=== PATIENT | female | born 1995 | race American Indian/Alaskan Native ===

== ENCOUNTER 2017-11-20 00:33 | Emergency (ER) | payer MEDICAID ==
[~2017-11-20] VITALS: Ht 162.6 cm; Wt 64.4 kg
[2017-11-20 00:44] VITALS: BP 118/81
[2017-11-20 00:58] LABS: CLARITY,URINE CLEAR (Clear); COLOR,URINE YELLOW (Yellow); GLUCOSE, URINE NEGATIVE (Neg); KETONES,URINE NEGATIVE (Neg); LEUKOCYTE ESTERASE ,URINE LARGE (Neg); NITRITES, URINE NEGATIVE (Neg); OCCULT BLOOD,URINE NEGATIVE (Neg); PROTEIN,URINE NEGATIVE (Neg); UROBILINOGEN,URINE 0.2 E.U/dL (0.2-1.0)
[2017-11-20 00:59] LABS: URINE HCG POSITIVE (NEG)
[2017-11-20 01:03] LABS: UA COLLECTION TYPE CLN CATCH MIDSTREAM
[2017-11-20 01:05] LABS: BACTERIA,URINE FEW /HPF (Neg); MUCUS STRANDS NONE SEEN /LPF (Neg); RBC,URINE NONE SEEN /HPF (0-2); SQUAMOUS EPITHELIAL CELL,UR MODERATE /LPF (FEW); WBC,URINE 0-4 /HPF (0-4)
== END 2017-11-20 01:57 | disposition home or self-care (01) ==
LOC: ER 00:34
DX: O26.891 Other specified pregnancy related conditions, first trimester (principal); N89.8 Other specified noninflammatory disorders of vagina; Z3A.12 12 weeks gestation of pregnancy
CPT/HCPCS: 36415; 81001; 81025; 87088; 87210; 87491; 99284

== ENCOUNTER 2019-12-28 22:04 | Emergency (ER) | payer MEDICAID ==
[~2019-12-28] VITALS: Ht 162.6 cm; Wt 54.5 kg
--- NOTE | 2019-12-28 23:32 | NUR ---
Patient is resting quietly. [employer] is present outside door, patient in custody awaiting medical clearance for booking to snf. Covid 19 results pending for clearance.
--- NOTE | 2019-12-28 23:51 | NUR ---
scientist propagator called. Patient is Covid 19 negative, this break RN will report to ED/MD.
[2019-12-28 23:55] VITALS: BP 116/87
[2019-12-28] MEDS ORDERED: TETanus/Pertussis (Acell)/Diphther VAC/PF (Tdap-Adult) 0.5ml syringe IMVAC ONE (23:55)
== END 2019-12-29 00:09 ==
LOC: ER 22:04
DX: S60.222A Contusion of left hand, initial encounter (principal); R05 Cough; R50.9 Fever, unspecified; F12.10 Cannabis abuse, uncomplicated; I49.9 Cardiac arrhythmia, unspecified; D64.9 Anemia, unspecified; W22.8XXA Striking against or struck by other objects, initial encounter; Y93.89 Activity, other specified; Y92.89 Other specified places as the place of occurrence of the external cause; Y99.8 Other external cause status; Z20.828 Contact with and (suspected) exposure to other viral communicable diseases
CPT/HCPCS: 73130; 87635; 90471; 90715; 99284; C9803

== ENCOUNTER 2020-01-19 10:13 | Emergency (ER) | payer MEDICAID ==
[~2020-01-19] VITALS: Ht 162.6 cm; Wt 116.0 kg
[2020-01-19 11:25] LABS: URINE HCG NEGATIVE (NEG)
[2020-01-19 11:28] LABS: BASOPHILS % (AUTO) 0.7 % (0-1); EOSINOPHILS % (AUTO) 0.3 % (0-6); HEMATOCRIT 38.3 % (35.0-45.0); HEMOGLOBIN 13.1 g/dl (12.0-16.0); LYMPHOCYTES # (AUTO) 1.4 X10'3 (1.1-4.8); LYMPHOCYTES % (AUTO) 20.7 % (21-51); MEAN CORPUSCULAR HEMOGLOBIN 31.4 PG (27.0-31.0); MEAN CORPUSCULAR HGB CONC 34.2 g/dL (33.0-36.5); MEAN CORPUSCULAR VOLUME 91.9 FL (78-98); MONOCYTES # (AUTO) 0.5 X10'3 (0-0.9); MONOCYTES % (AUTO) 7.4 % (2-12); NEUTROPHILS # (AUTO) 4.7 X10'3 (1.8-7.7); NEUTROPHILS % (AUTO) 70.9 % (42-75); PLATELET COUNT 331 X10'3 (140-440); RED BLOOD COUNT 4.17 X10'6 (4.20-5.60); RED CELL DISTRIBUTION WIDTH 13.3 % (11.5-14.5); WHITE BLOOD COUNT 6.7 X10'3 (4.5-11.0)
[2020-01-19 11:46] LABS: ALANINE AMINOTRANSFERASE 26 U/L (12-78); ALBUMIN 4.9 G/DL (3.4-5.0); ALBUMIN/GLOBULIN RATIO 1.4 (1.1-1.5); ALKALINE PHOSPHATASE 119 IU/L (46-116); ANION GAP 11 (8-16); ASPARTATE AMINO TRANSFERASE 29 U/L (10-37); BILIRUBIN,TOTAL 0.6 MG/DL (0.1-1.0); BLOOD UREA NITROGEN 14 MG/DL (7-18); BUN/CREATININE RATIO 19.4 (6.6-38.0); CALCIUM 9.2 MG/DL (8.5-10.1); CHLORIDE 105 MMOL/L (99-107); CREATININE 0.72 MG/DL (0.40-0.90); ETHANOL < 0.010 GM/DL (0.0-0.010); GLUCOSE 107 MG/DL (70-104); POTASSIUM 3.3 MMOL/L (3.5-5.1); SODIUM 142 MMOL/L (135-145); TOTAL CARBON DIOXIDE 26.1 MMOL/L (24-32); TOTAL PROTEIN 8.4 G/DL (6.4-8.2); eGFR > 90 ML/MIN
[2020-01-19 12:00] LABS: URINE AMPHETAMINE SCREEN POSITIVE (Neg); URINE BARBITUATE SCREEN NEGATIVE (Neg); URINE BENZODIAZEPINES SCREEN NEGATIVE (Neg); URINE CANNABINOID SCREEN POSITIVE (Neg); URINE COCAINE SCREEN NEGATIVE (Neg); URINE METHADONE SCREEN NEGATIVE (Neg); URINE OPIATE SCREEN NEGATIVE (Neg); URINE PHENCYCLIDINE SCREEN NEGATIVE (Neg)
[2020-01-19] MEDS ORDERED: LORazepam 1 MG tablet PO ONE (12:35)
[2020-01-19] MEDS ORDERED: diphenhydrAMINE 25mg capsule PO ONE (12:35)
--- NOTE | 2020-01-19 13:02 | NUR ---
rosmery roa and rosmery mckeon on martha daja ws calld for med rec. pt has had nothing filled since 2018 which was colace, motrin and a antibotic. pt states i was dx with claude in 2019 at [facility]
--- NOTE | 2020-01-19 13:05 | NUR ---
Ford lopez in [facility] - 01/19/20 at 1305 by SRINIVAS laurel venegas
--- NOTE | 2020-01-19 13:05 | NUR ---
pt was given yougart and sandy crackers to eat. when observing eating noted she had her finger s down her mouth vomitting. informed ekvin thomas
--- NOTE | 2020-01-19 14:45 | NUR ---
[facility]
[2020-01-19 15:04] LABS: CLARITY,URINE CLOUDY (Clear); COLOR,URINE YELLOW (Yellow); GLUCOSE, URINE NEGATIVE (Neg); KETONES,URINE >=80 mg/dl (Neg); LEUKOCYTE ESTERASE ,URINE NEGATIVE (Neg); NITRITES, URINE NEGATIVE (Neg); OCCULT BLOOD,URINE TRACE-LYSED (Neg); PROTEIN,URINE 30 mg/dl (Neg)
[2020-01-19 15:05] LABS: UA COLLECTION TYPE CLN CATCH MIDSTREAM
[2020-01-19 15:10] LABS: AMORPHOUS PHOSPHATES 3+; BACTERIA,URINE FEW /HPF (Neg); CAL OXALATE CRYSTALS 2+ /HPF (NEGATIVE); MUCUS STRANDS MODERATE /LPF (Neg); RBC,URINE 0-2 /HPF (0-2); SQUAMOUS EPITHELIAL CELL,UR FEW /LPF (FEW); WBC,URINE 0-4 /HPF (0-4)
--- NOTE | 2020-01-19 15:36 | NUR ---
Patient sleeping. No distress observed. Patient is medicated. Continue to monitor.
--- NOTE | 2020-01-19 15:58 | NUR ---
Dad [phone]. Manuel Harding
--- NOTE | 2020-01-19 17:03 | NUR ---
Patient continues to sleep. No distress observed. Continue to monitor.
[2020-01-19] MEDS ORDERED: NO HOME MEDS (17:04)
--- NOTE | 2020-01-19 19:52 | NUR ---
The patient is awake, and wondering how long she will be here. [facility] aware that she is awke.
--- NOTE | 2020-01-19 20:57 | NUR ---
The patient has just seen RADHA Kline from [facility]. She will remain here at least until tomorrow.
--- NOTE | 2020-01-19 22:45 | NUR ---
[facility] They will present to MD, and call back if accepted.
--- NOTE | 2020-01-19 23:00 | NUR ---
received call from Radha at [facility]. The patient needs rapid Covid test and TSH to be accepted at [facility].
--- NOTE | 2020-01-19 23:15 | NUR ---
Rapid PCR Covid test sent to pharmacy.
--- NOTE | 2020-01-20 01:39 | NUR ---
The patient is sleeping in supine position. No s/s of distress.
--- NOTE | 2020-01-20 03:18 | NUR ---
Patient sleeping in supine position. No s/s of distress.
--- NOTE | 2020-01-20 05:03 | NUR ---
The patient is sleeping on her right side. No s/s of distress.
[2020-01-20 05:41] VITALS: BP 95/52
--- NOTE | 2020-01-20 06:48 | NUR ---
Note jessica in ED - 01/20/20 at 0650 by ALONSO Patient is awake, sitting up and talking to tech. No distress observed at this time. Continue to monitor.
--- NOTE | 2020-01-20 06:51 | NUR ---
Patient sleeping supine and reclining in bed. No distress observed. Continue to monitor.
--- NOTE | 2020-01-20 08:53 | NUR ---
[facility] upset [facility] today." RN explained that Eliud upheld the 5150 hold and she is not going home but is still on a 5150 hold and will be transferred to a F. Patient is aruging. [facility], Lee, attempted to explain the same thing to patient and show patient the 5150, but she kept on arguing. Lee had to walk away. RN gave patient a copy of her 5150. Security standing by. Continue to monitor.
[2020-01-20] MEDS ORDERED: LORazepam 2 mg/ml vial IM ONE (09:05)
--- NOTE | 2020-01-20 09:20 | NUR ---
Patient took IM Ativan willingly. Patient going to [facility] in 15 minutes. Patient cried but then was more cooperative. Continue to monitor.
== END 2020-01-20 09:55 ==
LOC: ER 10:14
DX: F15.90 Other stimulant use, unspecified, uncomplicated (principal); Z20.828 Contact with and (suspected) exposure to other viral communicable diseases; F29 Unspecified psychosis not due to a substance or known physiological condition; F20.9 Schizophrenia, unspecified; F17.200 Nicotine dependence, unspecified, uncomplicated; Z86.2 Personal history of diseases of the blood and blood-forming organs and certain disorders involving the immune mechanism; Z88.0 Allergy status to penicillin; Z88.8 Allergy status to other drugs, medicaments and biological substances; Z72.820 Sleep deprivation
CPT/HCPCS: 36415; 80053; 80305; 80320; 81001; 81025; 84443; 85025; 87635; 96372; 99285; C9803; J2060; Q0163

== ENCOUNTER 2020-03-12 20:00 | Emergency (ER) | payer MEDICAID ==
[~2020-03-12] VITALS: Ht 160 cm; Wt 54.5 kg
[~2020-03-12 20:00] MED LIST: NO HOME MEDS
[2020-03-12 20:26] LABS: BASOPHILS # (AUTO) 0.1 X10'3 (0-0.2); BASOPHILS % (AUTO) 0.7 % (0-1); EOSINOPHILS % (AUTO) 0.4 % (0-6); HEMATOCRIT 36.4 % (35.0-45.0); HEMOGLOBIN 12.4 g/dl (12.0-16.0); LYMPHOCYTES # (AUTO) 1.2 X10'3 (1.1-4.8); LYMPHOCYTES % (AUTO) 13.2 % (21-51); MEAN CORPUSCULAR HEMOGLOBIN 31.3 PG (27.0-31.0); MEAN CORPUSCULAR VOLUME 92.1 FL (78-98); MEAN PLATELET VOLUME 7.9 FL (7.4-10.4); MONOCYTES # (AUTO) 0.6 X10'3 (0-0.9); MONOCYTES % (AUTO) 6.3 % (2-12); NEUTROPHILS # (AUTO) 6.9 X10'3 (1.8-7.7); NEUTROPHILS % (AUTO) 79.4 % (42-75); PLATELET COUNT 452 X10'3 (140-440); RED BLOOD COUNT 3.95 X10'6 (4.20-5.60); RED CELL DISTRIBUTION WIDTH 13.1 % (11.5-14.5); WHITE BLOOD COUNT 8.7 X10'3 (4.5-11.0)
--- NOTE | 2020-03-12 20:26 | NUR ---
[facility] CLOSED. INNA GARCIA ORDERED RAPID COVID SWAB TO CONFIRM
--- NOTE | 2020-03-12 20:28 | NUR ---
FATHER CALLED AND STATES PT TAKES ATIVAN. ALLERGIC TO LITHIUM, TRAZADONE, AND SERAQUIL.
[2020-03-12] MEDS ORDERED: LORazepam 2 mg/ml vial ONE (20:33)
[2020-03-12] MEDS ORDERED: diphenhydrAMINE 50 mg/ml inj ONE (20:34)
[2020-03-12] MEDS ORDERED: haloperidol lactate 5mg/ml inj ONE ×2 (20:34→20:35)
[2020-03-12] MEDS ORDERED: LORazepam 2 mg/ml vial IM ONE (20:35)
[2020-03-12] MEDS ORDERED: haloperidol lactate 5mg/ml inj IM ONE (20:35)
[2020-03-12] MEDS ORDERED: diphenhydrAMINE 50 mg/ml inj IM ONE (20:35)
[2020-03-12 20:38] LABS: ALANINE AMINOTRANSFERASE 25 U/L (12-78); ALBUMIN 4.5 G/DL (3.4-5.0); ALBUMIN/GLOBULIN RATIO 1.3 (1.1-1.5); ALKALINE PHOSPHATASE 102 IU/L (46-116); ANION GAP 10 (8-16); ASPARTATE AMINO TRANSFERASE 23 U/L (10-37); BILIRUBIN,TOTAL 0.4 MG/DL (0.1-1.0); BLOOD UREA NITROGEN 17 MG/DL (7-18); BUN/CREATININE RATIO 22.1 (6.6-38.0); CALCIUM 8.9 MG/DL (8.5-10.1); CHLORIDE 106 MMOL/L (99-107); CREATININE 0.77 MG/DL (0.40-0.90); ETHANOL < 0.010 GM/DL (0.0-0.010); GLUCOSE 105 MG/DL (70-104); SODIUM 141 MMOL/L (135-145); TOTAL PROTEIN 7.9 G/DL (6.4-8.2); eGFR > 90 ML/MIN
--- NOTE | 2020-03-12 21:00 | NUR ---
PATIENT MEDICATED, OFFERED COMMODE, PUT A GLOVE IN HER UNDERWEAR, REMOVED IT AND PATIENT GOT IN BED.
--- NOTE | 2020-03-12 21:30 | NUR ---
PATIENT RESTING COMFORTABLY ON RIGHT SIDE.
--- NOTE | 2020-03-12 22:30 | NUR ---
PATIENT SLEEPING ON RIGHT SIDE, NO SIGNS OF DISTRESS.
--- NOTE | 2020-03-12 23:30 | NUR ---
SLEEPING ON RIGHT SIDE NO SIGNS OF DISTRESS.
--- NOTE | 2020-03-13 00:09 | NUR ---
PATIENT'S PACKET WAS SENT TO [facility].
--- NOTE | 2020-03-13 00:13 | NUR ---
PTS VS TAKEN AND WNL. PT DID NOT AWAKEN DURING THIS. DID STRETCH OUT HER ARM WHEN ASKED. SLEEPING. LYING ON HER RIGHT SIDE WITH BLANKET COVERING TO HER CHEST. RR 14 AND UNLABORED.
--- NOTE | 2020-03-13 00:23 | NUR ---
NO URINE COLLECTED. PT MEDICATED EARLIER AND REMAINS ASLEEP. BSC WITH HAT IN ROOM FOR WHEN PT AWAKENS. ORAL HYGIENIST, RIVERA, MANDY AND I AGREEABLE TO WAITING UNTIL PT AWAKENS TO COLLECT URINE.
--- NOTE | 2020-03-13 02:59 | NUR ---
Father, Manuel, calling for update [phone]. He will call again in the [facility]. He request call from [facility] for update. 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 She has a 2 and 3 yr old who are taken care of by her parents in [place]. He reports she lives in a "house where all they do is meth". States the Pt told him she thought she "was drugged" and that she was "out of it and didn't even recognize her family". He was polite and appropirate and concerned. States he and Pts mother are trying to help the Pt.
--- NOTE | 2020-03-13 06:48 | NUR ---
pt sleeping in bed quietly no distress noted ,sitter keeping close eye on pt .will cont to monitor.
--- NOTE | 2020-03-13 08:07 | NUR ---
SPOKE TO TAD OFFICE AND INFORMED THAT URINE SPECIMEN IS STILL PENDING PT IS SLEEPING ,WILL WAKE UP PT TO GET URINE SPECIMEN.
--- NOTE | 2020-03-13 09:10 | NUR ---
tried to wake up pt but didn;t wake up,node in between and then went back to sleep .will recheck on her.
--- NOTE | 2020-03-13 10:29 | NUR ---
WOKE UP PT OFFERED WATER ,PT TAKEN FEW SIPS AND WENT BCK TO SLEEP .
--- NOTE | 2020-03-13 11:05 | NUR ---
MELLISA FROM [facility] NEED URINE TOX SCREEN.
[2020-03-13 11:38] LABS: URINE HCG NEGATIVE (NEG)
[2020-03-13 12:01] LABS: URINE AMPHETAMINE SCREEN POSITIVE (Neg); URINE BARBITUATE SCREEN NEGATIVE (Neg); URINE BENZODIAZEPINES SCREEN NEGATIVE (Neg); URINE CANNABINOID SCREEN POSITIVE (Neg); URINE COCAINE SCREEN NEGATIVE (Neg); URINE METHADONE SCREEN NEGATIVE (Neg); URINE OPIATE SCREEN NEGATIVE (Neg); URINE PHENCYCLIDINE SCREEN NEGATIVE (Neg)
--- NOTE | 2020-03-13 14:10 | NUR ---
Patient not answering questions for at this time. Jimmy from states he will come back after speaking with patients father via phone. Request we leave lights on to try and start waking patient up.
[2020-03-13 14:35] LABS: CLARITY,URINE CLOUDY (Clear); COLOR,URINE YELLOW (Yellow); GLUCOSE, URINE NEGATIVE (Neg); KETONES,URINE 15 mg/dl (Neg); LEUKOCYTE ESTERASE ,URINE NEGATIVE (Neg); NITRITES, URINE NEGATIVE (Neg); OCCULT BLOOD,URINE NEGATIVE (Neg); PROTEIN,URINE TRACE mg/dl (Neg)
[2020-03-13 14:41] LABS: UA COLLECTION TYPE CLN CATCH MIDSTREAM
[2020-03-13 14:43] LABS: MUCUS STRANDS MODERATE /LPF (Neg)
[2020-03-13 14:44] LABS: SQUAMOUS EPITHELIAL CELL,UR MODERATE /LPF (FEW)
[2020-03-13 14:51] LABS: RBC,URINE 0-2 /HPF (0-2); WBC,URINE 0-4 /HPF (0-4)
[2020-03-13 14:52] LABS: CAL OXALATE CRYSTALS FEW /HPF (NEGATIVE)
[2020-03-13 14:53] LABS: AMORPHOUS PHOSPHATES 3+
[2020-03-13 14:54] LABS: BACTERIA,URINE FEW /HPF (Neg)
--- NOTE | 2020-03-13 15:05 | NUR ---
patient arrived from main ER by ambulation and in stable condition, respirations appear normal. Got [facility] at bedside and security the patient keeps trying to refuse to answer questions but when the covers are removed she quickly wakes up.
--- NOTE | 2020-03-13 16:23 | NUR ---
the patient is sleeping on the right side, her respirations appear normal and she isnt in any distress at this time.
--- NOTE | 2020-03-13 17:24 | NUR ---
the patient was laying on her right side but was woke up by the tech to do a set of vitals. The patient's respirations appeared normal and there were no signs of distress. After the vitals were completed the patient remained laying supine and went right back to sleep.
--- NOTE | 2020-03-13 19:12 | NUR ---
Patient has been sleeping quietly since shift change. She is in no distress, laying on her right side. Good color. In direct view from the nursing stationl.
--- NOTE | 2020-03-13 23:02 | NUR ---
Pt sleeping, lying on her left side with blankets covering to her shoulders. RR 14 and unlabored. Sitter and RN within view of Pt AAT.
--- NOTE | 2020-03-13 23:47 | NUR ---
Patient remains sleeping. She has self repositioned. Bed is in mid fowlers position. Patients bed is in view from the nurses station.
--- NOTE | 2020-03-14 00:35 | NUR ---
Patiazaelt sleeps, mid fowlers position. Her head is turned to the right. W/D, color is good. Quiet respirations.
--- NOTE | 2020-03-14 04:00 | NUR ---
Patient sleeping quietly on her right side. In view from nursing station.
--- NOTE | 2020-03-14 06:42 | NUR ---
Patient sleeping supine No distress observed. Continue to monitor.
--- NOTE | 2020-03-14 08:25 | NUR ---
Patient eating breakfast. No distress observed. Continue to monitor.
--- NOTE | 2020-03-14 09:07 | NUR ---
pt resting on back rr equal and unlabored
--- NOTE | 2020-03-14 11:05 | NUR ---
Patient sleeping supine. No distress observed. Continue to monitor.
--- NOTE | 2020-03-14 13:10 | NUR ---
Patient eating lunch. No distress observed. continue to monitor.
--- NOTE | 2020-03-14 15:01 | NUR ---
PT RESTING ON BACK WITH EYES CLOSED RR EQUAL AND UNLABORED
--- NOTE | 2020-03-14 17:55 | NUR ---
Patient sitting up and speaking to her dad. No distress observed. Continue to monitor.
--- NOTE | 2020-03-14 18:50 | NUR ---
RECEIVED REPORT FROM DAPHNE GARCIA. PT CURRENTLY CALM AND COOPERATIVE WITH NO SIGNS OF DISTRESS OR DISCOMFORT. WILL CONT TO MONITOR.
--- NOTE | 2020-03-14 21:04 | NUR ---
PT SLEEPING ON RIGHT SIDE WITH NORMAL BREATHING. NO SIGNS OF DISTRESS OR DISCOMFORT NOTED. PT'S FIANCE CALLED, RN INFORMED HIM PT WAS SLEEPING. WILL CONT TO MONITOR.
--- NOTE | 2020-03-14 23:01 | NUR ---
PT SLEEPING. SHE GOT UP 30 MIN AGO TO BRUSH HER TEETH AND USE RESTROOM. PT IS CALM AND COOPERATIVE AND DOES NOT SEEM TO BE IN ANY DISTRESS OR DISCOMFORT. WILL CONT TO MONITOR.
--- NOTE | 2020-03-15 01:22 | NUR ---
PT CONTINUES TO SLEEP WITH NO SIGNS OF DISTRESS OR DISCOMFORT. WILL CONT TO MONITOR.
--- NOTE | 2020-03-15 03:14 | NUR ---
PT CONT TO SLEEP WITH REGULAR RATE OF BREATHING. NO SIGNS OF DISTRESS OR DISCOMFORT NOTED. WILL CONT TO MONITOR.
--- NOTE | 2020-03-15 05:24 | NUR ---
PT SLEEPING WITH REGULAR BREATHING RATE. NO SIGNS OF DISTRESS OR PAIN NOTED. WILL CONT TO MONITOR.
--- NOTE | 2020-03-15 06:35 | NUR ---
Resting with eyes closed, respirations normal
--- NOTE | 2020-03-15 07:55 | NUR ---
Patient laying on right side with eyes closed, respirations normal
--- NOTE | 2020-03-15 08:43 | NUR ---
Resting with eyes closed on her back. Respirations normal.
--- NOTE | 2020-03-15 09:30 | NUR ---
Resting with eyes closed, ate a little breakfast
--- NOTE | 2020-03-15 11:30 | NUR ---
Note jessica in ED - 03/15/20 at 1346 by FSTURR Patient still resting quietly. Occassionally coughing, states the RT tx help.
--- NOTE | 2020-03-15 13:15 | NUR ---
Up to nurse's station, asked to use phone and whether her parents had called
--- NOTE | 2020-03-15 15:59 | NUR ---
Given bathing items to clean up
--- NOTE | 2020-03-15 16:17 | NUR ---
Pt returned to BED 21 after daily clean up, hair washed and combed, teeth brushed. Resting quietly now in bed, denies needs.
--- NOTE | 2020-03-15 16:58 | NUR ---
Resting on right side with eyes closed, respirations normal
--- NOTE | 2020-03-15 18:11 | NUR ---
Eating dinner, took a call from friend "Babak"
--- NOTE | 2020-03-15 19:58 | NUR ---
Babak Paulino Patients roommate. [phone] He drove from [place] to [place] to pick patient up. Patient was not discharged. He will call back to check on this patients status in the am.
--- NOTE | 2020-03-15 21:09 | NUR ---
Patient exhibits anxiety, she is crying. Upset about being here, wants to be home with children. PO Ativan 1 mg is ordered.
[2020-03-15] MEDS ORDERED: LORazepam 1 MG tablet PO ONE (21:10)
--- NOTE | 2020-03-15 23:57 | NUR ---
Patient sleeping low fowlers position in bed. In view from nurses station.
--- NOTE | 2020-03-16 02:54 | NUR ---
Patient sleeping on her left side in bed, no distress. In view from nursing station .
--- NOTE | 2020-03-16 04:54 | NUR ---
Patient sleeping quietly in a low fowlers position on her left side.
[2020-03-16 05:43] VITALS: BP 106/62
--- NOTE | 2020-03-16 06:29 | NUR ---
Patient sleeping supine. No distress observed. Continue to monitor.
--- NOTE | 2020-03-16 08:01 | NUR ---
Patient eating breakfast. No distress observed. Continue to monitor.
--- NOTE | 2020-03-16 08:15 | NUR ---
Patient on the phone with a roommate. Patient got upset and brought the phone. Patient appears a little confused. Continue to monitor.
--- NOTE | 2020-03-16 09:35 | NUR ---
Patient sleeping supine. No distress observed. Continue to monitor.
--- NOTE | 2020-03-16 11:31 | NUR ---
Patient sleeping supine. No distress observed. Continue to monitor.
--- NOTE | 2020-03-16 12:29 | NUR ---
Breaking Primary RN, pt just ambulated to the bathroom, no needs at this time, will continue to monitor
--- NOTE | 2020-03-16 12:35 | NUR ---
pt requests Ativan, called over to [facility] to req
--- NOTE | 2020-03-16 13:00 | NUR ---
BRET Hansen psychiatric student and [facility] evaluating patient. No distress observed. Continue to monitor.
[2020-03-16] MEDS ORDERED: aripiprazole 5mg tablet PO SCH ×2 (13:20→21:00)
[2020-03-16] MEDS ORDERED: aripiprazole 5mg tablet PO ONE (13:20)
[2020-03-16] MEDS ORDERED: hydrOXYzine 25 MG tablet PO PRN (13:20)
--- NOTE | 2020-03-16 13:50 | NUR ---
RN gave patient her medication. 3 pills, 5 mg each. Patient just took one. THen RN asked patient to take the rest. She took another and hid the third in her hand. RN asked patient to take it and she did. Continue to monitor.
--- NOTE | 2020-03-16 14:29 | NUR ---
Patient sleeping on right side. No distress observed. Continue to monitor.
--- NOTE | 2020-03-16 15:51 | NUR ---
Patient sleeping on left side. No distress observed. Continue to monitor.
[2020-03-19] MEDS ORDERED: NICO-687 TD (13:32)
[2020-03-19] MEDS ORDERED: ARIP15TA8 PO (13:32)
== END 2020-03-16 16:08 | disposition home or self-care (01) ==
LOC: ER 20:00
DX: F99 Mental disorder, not otherwise specified (principal); Z20.822 Contact with and (suspected) exposure to COVID-19; R44.0 Auditory hallucinations; R44.1 Visual hallucinations; F15.90 Other stimulant use, unspecified, uncomplicated; Z86.2 Personal history of diseases of the blood and blood-forming organs and certain disorders involving the immune mechanism; Z88.0 Allergy status to penicillin; Z88.8 Allergy status to other drugs, medicaments and biological substances
CPT/HCPCS: 36415; 80053; 80305; 80320; 81001; 81025; 85025; 87426; 96372; 99285; J1200; J1630; J2060

== ENCOUNTER 2020-04-10 21:05 | Emergency (ER) | payer MEDICAID, OTHER ==
[~2020-04-10] VITALS: Ht 162.6 cm; Wt 54.5 kg
[~2020-04-10 21:05] MED LIST changes: +ARIP15TA8 PO; +NICO-687 TD
--- NOTE | 2020-04-10 21:56 | NUR ---
PT STATES SHE HAS NO SI OR JEY. SHE DENIES DESIRE TO . SHE CUT BILAT WRIST THREE TIMES. WITH ON SLIGHTLY DEEPER THAN SUREFICIAL
[2020-04-10 22:00] LABS: BASOPHILS # (AUTO) 0.1 X10'3 (0-0.2); EOSINOPHILS # (AUTO) 0.1 X10'3 (0-0.9); HEMATOCRIT 35.8 % (35.0-45.0); HEMOGLOBIN 12.1 g/dl (12.0-16.0); LYMPHOCYTES # (AUTO) 1.6 X10'3 (1.1-4.8); LYMPHOCYTES % (AUTO) 23.6 % (21-51); MEAN CORPUSCULAR HEMOGLOBIN 31.2 PG (27.0-31.0); MEAN CORPUSCULAR HGB CONC 33.9 g/dL (33.0-36.5); MEAN PLATELET VOLUME 8.3 FL (7.4-10.4); MONOCYTES # (AUTO) 0.5 X10'3 (0-0.9); MONOCYTES % (AUTO) 8.1 % (2-12); NEUTROPHILS # (AUTO) 4.4 X10'3 (1.8-7.7); NEUTROPHILS % (AUTO) 66.3 % (42-75); PLATELET COUNT 337 X10'3 (140-440); RED BLOOD COUNT 3.89 X10'6 (4.20-5.60); RED CELL DISTRIBUTION WIDTH 13.6 % (11.5-14.5); WHITE BLOOD COUNT 6.7 X10'3 (4.5-11.0)
--- NOTE | 2020-04-10 22:00 | NUR ---
awake asking for chart wants a copy of her chart so she can document her own updates reports we have lied in the past regarding her information
[2020-04-10 22:26] LABS: ALANINE AMINOTRANSFERASE 28 U/L (12-78); ALBUMIN 4.2 G/DL (3.4-5.0); ALBUMIN/GLOBULIN RATIO 1.2 (1.1-1.5); ALKALINE PHOSPHATASE 87 IU/L (46-116); ANION GAP 8 (8-16); ASPARTATE AMINO TRANSFERASE 17 U/L (10-37); BILIRUBIN,TOTAL 0.4 MG/DL (0.1-1.0); BLOOD UREA NITROGEN 11 MG/DL (7-18); BUN/CREATININE RATIO 17.7 (6.6-38.0); CALCIUM 8.8 MG/DL (8.5-10.1); CHLORIDE 105 MMOL/L (99-107); CREATININE 0.62 MG/DL (0.40-0.90); ETHANOL < 0.010 GM/DL (0.0-0.010); GLUCOSE 91 MG/DL (70-104); POTASSIUM 3.3 MMOL/L (3.5-5.1); SODIUM 141 MMOL/L (135-145); TOTAL CARBON DIOXIDE 27.9 MMOL/L (24-32); TOTAL PROTEIN 7.6 G/DL (6.4-8.2); eGFR > 90 ML/MIN
[2020-04-10 22:28] LABS: ACETAMINOPHEN < 2.0 UG/ML (10-30)
[2020-04-10] MEDS ORDERED: LORazepam 1 MG tablet PO ONE (22:40)
[2020-04-10] MEDS ORDERED: diphenhydrAMINE 50 mg/ml inj IM ONE (22:40)
[2020-04-10] MEDS ORDERED: potassium Cl 20 mEq SR tablet PO ONE (22:50)
--- NOTE | 2020-04-10 23:00 | NUR ---
advised to stop picking at scabs on arms patient said she can do what she wants we dont know anything. educated that she is on a hold an dcan not just leave and walk out
--- NOTE | 2020-04-11 01:35 | NUR ---
patient rubbing right areola, advised to put shirt down patient told me to go screw myslef. advised inappropriate
--- NOTE | 2020-04-11 01:48 | NUR ---
up to rest room urine specimen sent
[2020-04-11 02:01] LABS: URINE HCG NEGATIVE (NEG)
--- NOTE | 2020-04-11 02:15 | NUR ---
lying on left side no signs of distress
[2020-04-11 02:37] LABS: URINE AMPHETAMINE SCREEN POSITIVE (Neg); URINE BARBITUATE SCREEN NEGATIVE (Neg); URINE BENZODIAZEPINES SCREEN NEGATIVE (Neg); URINE CANNABINOID SCREEN POSITIVE (Neg); URINE COCAINE SCREEN NEGATIVE (Neg); URINE METHADONE SCREEN NEGATIVE (Neg); URINE OPIATE SCREEN NEGATIVE (Neg); URINE PHENCYCLIDINE SCREEN NEGATIVE (Neg)
--- NOTE | 2020-04-11 03:00 | NUR ---
sleeping no signs of distress noted
--- NOTE | 2020-04-11 04:10 | NUR ---
eupneic respirations no apparent sdistress noted
--- NOTE | 2020-04-11 05:00 | NUR ---
cooperative no complaints
[2020-04-11 06:20] VITALS: BP 116/64
--- NOTE | 2020-04-11 08:35 | NUR ---
PT RESTING WITH EYES CLOSED RR EQUAL NON LABORED. IN SITE OF NSG STATION
--- NOTE | 2020-04-11 10:45 | NUR ---
JORDYNH AT FOR EVAL. STOVALL AND LIGHTS TURNED ON.
--- NOTE | 2020-04-11 11:35 | NUR ---
[facility] AT BS SPEAKING TO PT RE POSSIBLE DC PLAN
== END 2020-04-11 15:54 | disposition home or self-care (01) ==
LOC: ER 21:06
DX: S51.812A Laceration without foreign body of left forearm, initial encounter (principal); F31.9 Bipolar disorder, unspecified; F17.200 Nicotine dependence, unspecified, uncomplicated; F15.90 Other stimulant use, unspecified, uncomplicated; Z88.0 Allergy status to penicillin; Z88.8 Allergy status to other drugs, medicaments and biological substances; Z79.899 Other long term (current) drug therapy; X83.8XXA Intentional self-harm by other specified means, initial encounter; Y93.89 Activity, other specified; Y92.89 Other specified places as the place of occurrence of the external cause; Y99.8 Other external cause status
CPT/HCPCS: 12002; 36415; 80053; 80305; 80320; 80329; 81025; 85025; 99285

== ENCOUNTER 2020-06-26 17:01 | Emergency (ER) | payer MEDICAID, OTHER ==
[~2020-06-26] VITALS: Ht 157.5 cm; Wt 56.8 kg
--- NOTE | 2020-06-26 17:36 | NUR ---
Received pt straight back with senior analyst programmer. Pt in handcuffs. Pt uncooperative, confused, disorganized. While female staff observing pt changing out of street clothes and into hospital scrubs, pt began masturbating and told female staff, "tell me to pull my pants up again, I like you" Pt then pulled off her sock and a gold colored chain fell out and she grabbed it and put it in her mouth and pretended to swallow it. After a few minutes, pt spit it out into her hand and staff was able to secure it. Pt is poor historian and answers to questions are at times incongruent to the question. Pt uncoopertive with giving urine sample and currently is in the bathroom washing up.
--- NOTE | 2020-06-26 17:48 | NUR ---
PT UNABLE TO PROVIDE URINE SAMPLE AT THIS TIME, WILL TRY AGAIN LATER.
[2020-06-26] MEDS ORDERED: OLANZapine **IM** 10 mg inj. IM ONE (18:35)
--- NOTE | 2020-06-26 18:40 | NUR ---
PT IS INTERRUPTING NURSES WITH REPORT AND IS NONCOMPLIANT WITH NURSES AT THIS TIME.
[2020-06-26 18:58] LABS: BASOPHILS % (AUTO) 0.4 % (0-1); EOSINOPHILS % (AUTO) 0.2 % (0-6); HEMATOCRIT 36.8 % (35.0-45.0); HEMOGLOBIN 12.5 g/dl (12.0-16.0); LYMPHOCYTES # (AUTO) 1.5 X10'3 (1.1-4.8); LYMPHOCYTES % (AUTO) 15.6 % (21-51); MEAN CORPUSCULAR HEMOGLOBIN 30.6 PG (27.0-31.0); MEAN CORPUSCULAR VOLUME 89.8 FL (78-98); MEAN PLATELET VOLUME 8.3 FL (7.4-10.4); MONOCYTES # (AUTO) 0.9 X10'3 (0-0.9); MONOCYTES % (AUTO) 9.4 % (2-12); NEUTROPHILS % (AUTO) 74.4 % (42-75); PLATELET COUNT 332 X10'3 (140-440); WHITE BLOOD COUNT 9.4 X10'3 (4.5-11.0)
[2020-06-26 19:01] LABS: URINE HCG NEGATIVE (NEG)
[2020-06-26 19:06] LABS: COLOR,URINE YELLOW (Yellow); GLUCOSE, URINE NEGATIVE (Neg); KETONES,URINE 40 mg/dl (Neg); LEUKOCYTE ESTERASE ,URINE NEGATIVE (Neg); NITRITES, URINE NEGATIVE (Neg); OCCULT BLOOD,URINE MODERATE (Neg); PH,URINE 5.5 (4.8-8.0); PROTEIN,URINE 100 mg/dl (Neg); UROBILINOGEN,URINE 0.2 E.U/dL (0.2-1.0)
[2020-06-26 19:11] LABS: UA COLLECTION TYPE CLN CATCH MIDSTREAM
[2020-06-26 19:12] LABS: CLARITY,URINE SLIGHTLY CLOUDY (Clear)
[2020-06-26 19:15] LABS: HYALINE CASTS 0-3 /LPF (NEGATIVE)
[2020-06-26 19:16] LABS: MUCUS STRANDS MANY /LPF (Neg); SQUAMOUS EPITHELIAL CELL,UR MODERATE /LPF (FEW)
[2020-06-26 19:16] LABS: ALBUMIN 4.9 G/DL (3.4-5.0); ANION GAP 16 (8-16); BILIRUBIN,TOTAL 1.1 MG/DL (0.1-1.0); BLOOD UREA NITROGEN 20 MG/DL (7-18); BUN/CREATININE RATIO 28.2 (6.6-38.0); CALCIUM 9.6 MG/DL (8.5-10.1); CHLORIDE 98 MMOL/L (99-107); CREATININE 0.71 MG/DL (0.40-0.90); GLUCOSE 94 MG/DL (70-104); POTASSIUM 3.7 MMOL/L (3.5-5.1); SODIUM 137 MMOL/L (135-145); TOTAL CARBON DIOXIDE 22.9 MMOL/L (24-32); TOTAL PROTEIN 8.7 G/DL (6.4-8.2); eGFR > 90 ML/MIN
[2020-06-26 19:17] LABS: ALANINE AMINOTRANSFERASE 32 U/L (12-78); ALBUMIN/GLOBULIN RATIO 1.3 (1.1-1.5); ALKALINE PHOSPHATASE 99 IU/L (46-116); ASPARTATE AMINO TRANSFERASE 56 U/L (10-37)
[2020-06-26 19:18] LABS: BACTERIA,URINE FEW /HPF (Neg); WBC,URINE 0-4 /HPF (0-4)
[2020-06-26 19:20] LABS: ACETAMINOPHEN < 2.0 UG/ML (10-30)
[2020-06-26 19:21] LABS: ETHANOL < 0.010 GM/DL (0.0-0.010)
[2020-06-26 19:25] LABS: URINE AMPHETAMINE SCREEN POSITIVE (Neg); URINE BARBITUATE SCREEN NEGATIVE (Neg); URINE BENZODIAZEPINES SCREEN NEGATIVE (Neg); URINE CANNABINOID SCREEN POSITIVE (Neg); URINE COCAINE SCREEN NEGATIVE (Neg); URINE METHADONE SCREEN NEGATIVE (Neg); URINE OPIATE SCREEN POSITIVE (Neg); URINE PHENCYCLIDINE SCREEN NEGATIVE (Neg)
--- NOTE | 2020-06-26 19:30 | NUR ---
PT REFUSED TO SPEAK ABOUT MEDICAL HX. PT NONCOMPLIANT WITH RN AND MANGA ARTIST, DOES NOT WANT TO STAY IN BED.
--- NOTE | 2020-06-26 20:33 | NUR ---
FOLLOWING MED ADMINISTRATION PT IS SLEEPING COMFORTABLY IN BED, VITAL SIGNS STABLE.
--- NOTE | 2020-06-26 21:45 | NUR ---
Pt continues to sleep comfortably this evening in no sign of distress.
--- NOTE | 2020-06-26 23:30 | NUR ---
Pt sleeping comfortably in bed at this time in no signs of distress.
--- NOTE | 2020-06-27 00:50 | NUR ---
Pt sleeping comfortably in no sign of distress at this time.
--- NOTE | 2020-06-27 01:30 | NUR ---
PT FATHER CALLED AND SPOKE WITH RN AT THIS TIME SPEAKING EXTREMELY QUICKLY AND INQUIRING ABOUT PT STATUS. NO INFORMATION DISCLOSED AT THIS TIME. PT FATHER WANTED TO ENSURE THAT CORRECT ALLERGIES WERE LISTED UNDER PT RECORD. PT SLEEPING COMFORTABLY IN BED AT THIS TIME AND UNABLE TO GIVE CONSENT TO SPEAK WITH FATHER STATED TO FATHER.
--- NOTE | 2020-06-27 02:46 | NUR ---
Pt continues to sleep comfortably in bed at this time in no sign of distress.
--- NOTE | 2020-06-27 04:20 | NUR ---
Pt sleeping comfortably in bed at this time with bed locked in lowest position. Pt in no sign of distress or pain at this time.
--- NOTE | 2020-06-27 05:20 | NUR ---
Patient resting comfortably post vital signs, continues to sleep at this time.
--- NOTE | 2020-06-27 07:00 | NUR ---
Pt lying in bed, appears to be sleeping without signs of distress.
--- NOTE | 2020-06-27 09:00 | NUR ---
Pt did awake and eat a small amount of breakfast, but refused to be bothered by [facility] shipping specialist and also did not wake for admitting.
--- NOTE | 2020-06-27 11:00 | NUR ---
[facility] both been by for the second time trying to wake the pt. No luck. Pt remains sleeping peacefully without signs of distress.
--- NOTE | 2020-06-27 12:59 | NUR ---
Pt awoke briefly to eat lunch, and fell back to sleep.
--- NOTE | 2020-06-27 15:00 | NUR ---
Pt awoke long enough to complete evaluation by [facility] and was found to not meet criteria for 5150 and pt will be discharged. Currently, pt is sleeping again.
--- NOTE | 2020-06-27 17:12 | NUR ---
relieving RN for break, pt is sleeping quietly on gurney,
[2020-06-27 18:32] VITALS: BP 95/55
== END 2020-06-27 18:36 | disposition home or self-care (01) ==
LOC: ER 17:02
DX: F23 Brief psychotic disorder (principal); F24 Shared psychotic disorder; F31.9 Bipolar disorder, unspecified; F15.90 Other stimulant use, unspecified, uncomplicated; Z86.2 Personal history of diseases of the blood and blood-forming organs and certain disorders involving the immune mechanism; Z88.0 Allergy status to penicillin; Z88.8 Allergy status to other drugs, medicaments and biological substances; Z79.899 Other long term (current) drug therapy
CPT/HCPCS: 36415; 80053; 80305; 80320; 80329; 81001; 81025; 85025; 96372; 99285; J3490

== ENCOUNTER 2020-11-10 10:08 | Emergency (ER) | payer MEDICAID, OTHER ==
[~2020-11-10] VITALS: Ht 167.6 cm; Wt 55.4 kg
[~2020-11-10 10:08] MED LIST changes: +ARIP15TA19 PO; -ARIP15TA8 PO
[2020-11-10] MEDS ORDERED: haloperidol lactate 5mg/ml inj IM ONE (10:45)
[2020-11-10] MEDS ORDERED: LORazepam 1 MG tablet PO ONE (10:45)
[2020-11-10 11:10] LABS: BASOPHILS % (AUTO) 0.5 % (0-1); EOSINOPHILS # (AUTO) 0.1 X10'3 (0-0.9); EOSINOPHILS % (AUTO) 0.8 % (0-6); HEMOGLOBIN 11.7 g/dl (12.0-16.0); LYMPHOCYTES # (AUTO) 1.7 X10'3 (1.1-4.8); LYMPHOCYTES % (AUTO) 21.7 % (21-51); MEAN CORPUSCULAR HEMOGLOBIN 31.7 PG (27.0-31.0); MEAN CORPUSCULAR HGB CONC 34.3 g/dL (33.0-36.5); MEAN CORPUSCULAR VOLUME 92.4 FL (78-98); MEAN PLATELET VOLUME 7.5 FL (7.4-10.4); MONOCYTES # (AUTO) 0.7 X10'3 (0-0.9); NEUTROPHILS # (AUTO) 5.4 X10'3 (1.8-7.7); PLATELET COUNT 410 X10'3 (140-440); RED BLOOD COUNT 3.67 X10'6 (4.20-5.60); RED CELL DISTRIBUTION WIDTH 12.7 % (11.5-14.5)
[2020-11-10 11:24] LABS: ALANINE AMINOTRANSFERASE 38 U/L (12-78); ALBUMIN 4.4 G/DL (3.4-5.0); ALBUMIN/GLOBULIN RATIO 1.3 (1.1-1.5); ALKALINE PHOSPHATASE 107 IU/L (46-116); ANION GAP 12 (8-16); ASPARTATE AMINO TRANSFERASE 32 U/L (10-37); BILIRUBIN,TOTAL 0.6 MG/DL (0.1-1.0); BLOOD UREA NITROGEN 14 MG/DL (7-18); BUN/CREATININE RATIO 21.2 (6.6-38.0); CALCIUM 8.3 MG/DL (8.5-10.1); CHLORIDE 104 MMOL/L (99-107); CREATININE 0.66 MG/DL (0.40-0.90); GLUCOSE 102 MG/DL (70-104); POTASSIUM 3.9 MMOL/L (3.5-5.1); SODIUM 142 MMOL/L (135-145); TOTAL CARBON DIOXIDE 26.1 MMOL/L (24-32); TOTAL PROTEIN 7.9 G/DL (6.4-8.2); eGFR > 90 ML/MIN
[2020-11-10 11:33] LABS: ETHANOL < 0.010 GM/DL (0.0-0.010)
[2020-11-10 11:55] LABS: URINE HCG NEGATIVE (NEG)
[2020-11-10 11:59] LABS: URINE AMPHETAMINE SCREEN POSITIVE (Neg); URINE BARBITUATE SCREEN NEGATIVE (Neg); URINE BENZODIAZEPINES SCREEN NEGATIVE (Neg); URINE CANNABINOID SCREEN POSITIVE (Neg); URINE COCAINE SCREEN NEGATIVE (Neg); URINE METHADONE SCREEN NEGATIVE (Neg); URINE OPIATE SCREEN NEGATIVE (Neg); URINE PHENCYCLIDINE SCREEN NEGATIVE (Neg)
[2020-11-10 12:00] LABS: CLARITY,URINE CLOUDY (Clear); COLOR,URINE YELLOW (Yellow); GLUCOSE, URINE NEGATIVE (Neg); PROTEIN,URINE TRACE mg/dl (Neg); UA COLLECTION TYPE CLN CATCH MIDSTREAM
[2020-11-10 12:01] LABS: KETONES,URINE TRACE mg/dl (Neg); LEUKOCYTE ESTERASE ,URINE MODERATE (Neg); NITRITES, URINE POSITIVE (Neg); OCCULT BLOOD,URINE SMALL (Neg); UROBILINOGEN,URINE 0.2 E.U/dL (0.2-1.0)
[2020-11-10 12:05] LABS: WBC,URINE TNTC /HPF (0-4)
[2020-11-10 12:06] LABS: MUCUS STRANDS FEW /LPF (Neg)
[2020-11-10 12:07] LABS: SQUAMOUS EPITHELIAL CELL,UR FEW /LPF (FEW)
[2020-11-10 12:08] LABS: BACTERIA,URINE 4+ /HPF (Neg)
[2020-11-10] MEDS: sulfamethoxazole/trimethoprim DS (800/160mg) tablet PO SCH (15:30)
--- NOTE | 2020-11-10 17:02 | NUR ---
PACKET SENT TO [facility]
--- NOTE | 2020-11-10 18:59 | NUR ---
Patient brought from main ER into bed 24. She has dinner tray, and is finishing meal.
--- NOTE | 2020-11-10 19:56 | NUR ---
Patient appears to be asleep on her right side. No s/s of distress.
--- NOTE | 2020-11-10 21:57 | NUR ---
Patient asleep on her right side. Breathing equal and not labored. There are no signs of distress.
--- NOTE | 2020-11-10 23:46 | NUR ---
Patient continues to sleep in supine position. Respirations unlabored.
[2020-11-11] MEDS: sulfamethoxazole/trimethoprim DS (800/160mg) tablet PO SCH ×3 (05:24→20:04)
--- NOTE | 2020-11-11 06:33 | NUR ---
Received patient sleeping comfortably in low fowlers position. Respirations unlabored.
[2020-11-11] MEDS: lactobacillus rhamnosus 10,000 MMU CELLS/CAPSULE PO SCH (08:41)
--- NOTE | 2020-11-11 09:01 | NUR ---
One on one with patient to assess pt psychotic symptoms. Pt reluctantly answered questions. Pt denies thoughts to harm self or others. When asked if she had a safe place pt stated "Of course!" Pt presents with an intense stare during assessment. Pt reiterated "I am not going to stay here!" Addendum: 11/11/20 at 1109 by ALBERTA Per [facility] during assessment pt stated she was going to hurt everyone "one by one" if she was placed on a hold.
[2020-11-11] MEDS ORDERED: QUEtiapine 25mg tablet PO ONE (10:45)
[2020-11-11] MEDS ORDERED: hydrOXYzine 25 MG tablet PO ONE (10:45)
[2020-11-11] MEDS ORDERED: quetiapine 100mg tablet PO ONE ×2 (10:50→14:35)
[2020-11-11] MEDS ORDERED: haloperidol lactate 5mg/ml inj IM ONE (11:00)
[2020-11-11] MEDS ORDERED: diphenhydrAMINE 50 mg/ml inj IM ONE (11:00)
--- NOTE | 2020-11-11 11:01 | NUR ---
Pt sleeping comfortably, respirations even and unlabored.
--- NOTE | 2020-11-11 11:11 | NUR ---
Pt was just told she was being placed on a hold. Pt tolerated well, no outbursts or threats. Pt stated "I can place my self." Pt rolled over and went back to sleep, will continue to monitor.
--- NOTE | 2020-11-11 11:17 | NUR ---
Pt med rec not completed as ext rec indicates pt is on Tracy and Seroquel. Pt lists these as allergies. Pt disorganized and unable to verify if allergy is legitimate.
--- NOTE | 2020-11-11 13:24 | NUR ---
Pt has remained calm. Pt had to be awoken to eat lunch and is up eating. No behaviors to report at this time.
[2020-11-11] MEDS: hydrOXYzine 25 MG tablet PO PRN ×2 (14:05→20:05)
--- NOTE | 2020-11-11 14:12 | NUR ---
Pt was standing at nurse's station and asked "Can I get some medicine?" Pt was administered PRN Atarax 50mg. Will continue to monitor. Noted pt lowering her eyes and whispering to herself. Chess Instructor asked about her allergies pt stated she is allergic to "Tylenol and Sulfa." Pt denies being allergic to quetiapine and lithium.
--- NOTE | 2020-11-11 14:29 | NUR ---
REGARDING PT's ALLERGY: Spoke with Angie at [facility], [place]. Pt was recently discharged from there facility and Dr. Benavides prescribed pt's [place] 600mg HS and Seroquel 100 mg HS. It was verified that pt IS NOT allergic to these medications. Pt also states she "is not allergic" to these medications.
--- NOTE | 2020-11-11 14:40 | NUR ---
Reported to senior grant writer while on break pt was at nurses station laughing and giggling inappropriately. Pt was twirling around. Pt was pacing from sink to nurses station.
--- NOTE | 2020-11-11 14:54 | NUR ---
Pt at nurses station requesting something to color. Pt is animated and slightly excitable. Appears to be responding to internal stimuli. Talks to self then looks to the side. Pt was administered 200mg Seroquel. Will continue to monitor.
[2020-11-11] MEDS ORDERED: QUET100T34 PO (15:47)
[2020-11-11] MEDS ORDERED: LITH300C PO (15:47)
--- NOTE | 2020-11-11 19:19 | NUR ---
One to one with the patient who gave brief replies. She did state that her mood has been up and down. She stated that she feels tired and irritable. She denies thoughts to harm herself or others. Psychotic symptoms were denied.
[2020-11-11] MEDS ORDERED: lithium carbonate 150mg capsule PO SCH (21:00)
[2020-11-11] MEDS ORDERED: quetiapine 100mg tablet PO SCH (21:00)
--- NOTE | 2020-11-11 21:30 | NUR ---
The patient appears to be sleeping
--- NOTE | 2020-11-11 23:32 | NUR ---
The patient appears to be sleeping
--- NOTE | 2020-11-12 01:04 | NUR ---
The patient appears to be sleeping
--- NOTE | 2020-11-12 02:26 | NUR ---
The patient appears to be sleeping
--- NOTE | 2020-11-12 03:25 | NUR ---
The patient appears to be sleeping
--- NOTE | 2020-11-12 05:00 | NUR ---
The patient was up briefly to use the bathroom but is now back in bed and appears to be sleeping
--- NOTE | 2020-11-12 06:55 | NUR ---
Patient sleeping on right side. No distress observed. Continue to monitor.
--- NOTE | 2020-11-12 08:17 | NUR ---
Patient c/o anxiety. RN gave Atarax with patient's regular medication. Patient eating breakfast. Continue to monitor.
[2020-11-12] MEDS: sulfamethoxazole/trimethoprim DS (800/160mg) tablet PO SCH (08:18)
[2020-11-12] MEDS: lactobacillus rhamnosus 10,000 MMU CELLS/CAPSULE PO SCH (08:19)
[2020-11-12] MEDS: hydrOXYzine 25 MG tablet PO PRN (08:19)
[2020-11-12] MEDS ORDERED: LORazepam 1 MG tablet PO ONE (11:20)
--- NOTE | 2020-11-12 13:51 | NUR ---
Pt has been accepted by [facility] at 12:30. Covid results sent to [facility].
--- NOTE | 2020-11-12 16:03 | NUR ---
Patient sleeping on right side. No distress observed. Continue to monitor.
--- NOTE | 2020-11-12 17:06 | NUR ---
Patient continues to sleep. No distress observed. Continue to monitor.
[2020-11-12 19:34] VITALS: BP 106/71
== END 2020-11-12 19:40 ==
LOC: ER 10:09
DX: F29 Unspecified psychosis not due to a substance or known physiological condition (principal); Z20.822 Contact with and (suspected) exposure to COVID-19; F20.9 Schizophrenia, unspecified; F31.9 Bipolar disorder, unspecified; N39.0 Urinary tract infection, site not specified; R45.1 Restlessness and agitation; F15.90 Other stimulant use, unspecified, uncomplicated; Z86.2 Personal history of diseases of the blood and blood-forming organs and certain disorders involving the immune mechanism; Z88.0 Allergy status to penicillin; Z88.8 Allergy status to other drugs, medicaments and biological substances; Z79.899 Other long term (current) drug therapy
CPT/HCPCS: 36415; 80053; 80178; 80305; 80320; 81001; 81025; 84443; 85025; 87635; 96372; 99285; C9803; J1630; Q0177

== ENCOUNTER 2020-11-30 16:02 | Emergency (ER) | payer MEDICAID, OTHER ==
[~2020-11-30] VITALS: Ht 162.6 cm; Wt 62.5 kg
[~2020-11-30 16:02] MED LIST changes: -ARIP15TA19 PO; +LITH300C PO; -NICO-687 TD; -NO HOME MEDS; +QUET100T34 PO
[2020-11-30 16:31] VITALS: BP 134/97
== END 2020-11-30 18:50 | disposition home or self-care (01) ==
LOC: ER 16:03
DX: F41.9 Anxiety disorder, unspecified (principal); F20.9 Schizophrenia, unspecified; F15.10 Other stimulant abuse, uncomplicated; Z88.0 Allergy status to penicillin; Z88.5 Allergy status to narcotic agent; Z79.899 Other long term (current) drug therapy
CPT/HCPCS: 99283

== ENCOUNTER 2021-03-04 20:45 | Emergency (ER) | payer MEDICAID, OTHER ==
[~2021-03-04] VITALS: Ht 162.6 cm; Wt 59.1 kg
[2021-03-04 21:31] VITALS: BP 118/98
== END 2021-03-04 23:16 | disposition home or self-care (01) ==
LOC: ER 20:46
DX: B34.9 Viral infection, unspecified (principal); Z20.822 Contact with and (suspected) exposure to COVID-19; J02.9 Acute pharyngitis, unspecified; R05.9 Cough, unspecified; F31.9 Bipolar disorder, unspecified; F20.9 Schizophrenia, unspecified; F15.90 Other stimulant use, unspecified, uncomplicated; F17.200 Nicotine dependence, unspecified, uncomplicated; Z86.2 Personal history of diseases of the blood and blood-forming organs and certain disorders involving the immune mechanism; Z88.0 Allergy status to penicillin; Z88.8 Allergy status to other drugs, medicaments and biological substances; Z79.899 Other long term (current) drug therapy
CPT/HCPCS: 87635; 99283; C9803

== ENCOUNTER 2021-05-27 09:11 | Emergency (ER) | payer MEDICAID, OTHER ==
[~2021-05-27] VITALS: Ht 162.6 cm; Wt 63.6 kg
[2021-05-27 10:01] LABS: BASOPHILS # (AUTO) 0.1 X10'3 (0-0.2); BASOPHILS % (AUTO) 0.7 % (0-1); EOSINOPHILS # (AUTO) 0.1 X10'3 (0-0.9); EOSINOPHILS % (AUTO) 1.1 % (0-6); HEMOGLOBIN 12.8 g/dl (12.0-16.0); LYMPHOCYTES % (AUTO) 23.6 % (21-51); MEAN CORPUSCULAR HEMOGLOBIN 30.9 PG (27.0-31.0); MEAN CORPUSCULAR HGB CONC 34.6 g/dL (33.0-36.5); MEAN CORPUSCULAR VOLUME 89.3 FL (78-98); MEAN PLATELET VOLUME 8.3 FL (7.4-10.4); MONOCYTES # (AUTO) 0.7 X10'3 (0-0.9); MONOCYTES % (AUTO) 8.2 % (2-12); NEUTROPHILS # (AUTO) 5.7 X10'3 (1.8-7.7); NEUTROPHILS % (AUTO) 66.4 % (42-75); PLATELET COUNT 311 X10'3 (140-440); RED BLOOD COUNT 4.15 X10'6 (4.20-5.60); RED CELL DISTRIBUTION WIDTH 13.3 % (11.5-14.5); WHITE BLOOD COUNT 8.5 X10'3 (4.5-11.0)
[2021-05-27 10:24] LABS: ALANINE AMINOTRANSFERASE 22 U/L (12-78); ALBUMIN 4.5 G/DL (3.4-5.0); ALBUMIN/GLOBULIN RATIO 1.2 (1.1-1.5); ALKALINE PHOSPHATASE 101 IU/L (46-116); ANION GAP 13 (8-16); ASPARTATE AMINO TRANSFERASE 21 U/L (10-37); BILIRUBIN,TOTAL 0.5 MG/DL (0.1-1.0); BLOOD UREA NITROGEN 18 MG/DL (7-18); BUN/CREATININE RATIO 27.3 (6.6-38.0); CALCIUM 8.5 MG/DL (8.5-10.1); CHLORIDE 103 MMOL/L (99-107); CREATININE 0.66 MG/DL (0.40-0.90); GLUCOSE 102 MG/DL (70-104); POTASSIUM 3.6 MMOL/L (3.5-5.1); SODIUM 138 MMOL/L (135-145); TOTAL PROTEIN 8.2 G/DL (6.4-8.2); eGFR > 90 ML/MIN
[2021-05-27 10:30] LABS: CLARITY,URINE CLOUDY (Clear); COLOR,URINE YELLOW (Yellow); GLUCOSE, URINE NEGATIVE (Neg); KETONES,URINE 15 mg/dl (Neg); LEUKOCYTE ESTERASE ,URINE SMALL (Neg); NITRITES, URINE NEGATIVE (Neg); OCCULT BLOOD,URINE TRACE-INTACT (Neg); PROTEIN,URINE NEGATIVE (Neg); UROBILINOGEN,URINE 0.2 E.U/dL (0.2-1.0)
[2021-05-27 10:32] LABS: UA COLLECTION TYPE CLN CATCH MIDSTREAM
[2021-05-27 10:35] LABS: MUCUS STRANDS MANY /LPF (Neg); SQUAMOUS EPITHELIAL CELL,UR MANY /LPF (FEW)
[2021-05-27 10:36] LABS: BACTERIA,URINE 2+ /HPF (Neg); WBC,URINE 20-30 /HPF (0-4)
[2021-05-27 10:37] LABS: RBC,URINE 0-2 /HPF (0-2)
[2021-05-27 10:41] LABS: URINE HCG NEGATIVE (NEG)
[2021-05-27 10:41] LABS: ETHANOL < 0.010 GM/DL (0.0-0.010)
[2021-05-27 10:51] LABS: URINE AMPHETAMINE SCREEN POSITIVE (Neg); URINE BARBITUATE SCREEN NEGATIVE (Neg); URINE BENZODIAZEPINES SCREEN NEGATIVE (Neg); URINE CANNABINOID SCREEN POSITIVE (Neg); URINE COCAINE SCREEN NEGATIVE (Neg); URINE METHADONE SCREEN NEGATIVE (Neg); URINE OPIATE SCREEN NEGATIVE (Neg); URINE PHENCYCLIDINE SCREEN NEGATIVE (Neg)
[2021-05-27] MEDS ORDERED: HYDR50TA65 PO (17:23)
[2021-05-27] MEDS ORDERED: ATOR20TA66 PO (17:23)
[2021-05-27] MEDS ORDERED: ARIP15TA19 PO (17:23)
--- NOTE | 2021-05-27 17:27 | NUR ---
PACKET FAXED TO [facility].
--- NOTE | 2021-05-27 19:06 | NUR ---
The patient moved to bed 22 from the Main ER. She was very cooperative. She presents as pleasant, alert and oriented. She reports that she has been sad. She denies that she is suicidal or that she took and overdose. She is aware that she is on a 5150 hold and that [facility] will see her in the morning.
[2021-05-27] MEDS: hydrOXYzine 25 MG tablet PO SCH (20:05)
--- NOTE | 2021-05-27 20:27 | NUR ---
The patient is resting on her bed and appears to be asleep. She took her HS medications and had an evening snack
[2021-05-27] MEDS ORDERED: lithium carbonate 150mg capsule PO SCH (21:00)
[2021-05-27] MEDS ORDERED: quetiapine 100mg tablet PO SCH (21:00)
--- NOTE | 2021-05-27 21:13 | NUR ---
The patient appears to be sleeping on her bed.
--- NOTE | 2021-05-27 22:02 | NUR ---
The patient appears to be sleeping
--- NOTE | 2021-05-27 23:01 | NUR ---
Patient up to use the bathroom and now back in bed.
--- NOTE | 2021-05-27 23:51 | NUR ---
The patient appears to be sleeping
--- NOTE | 2021-05-28 00:49 | NUR ---
The patient appears to be sleeping
--- NOTE | 2021-05-28 01:52 | NUR ---
The patient appears to be sleeping
--- NOTE | 2021-05-28 03:25 | NUR ---
The patient appears to be sleeping
--- NOTE | 2021-05-28 05:32 | NUR ---
The patient appears to be sleeping
[2021-05-28 07:00] VITALS: BP 98/76
[2021-05-28] MEDS ORDERED: atorvastatin 20mg tablet PO SCH (08:00)
[2021-05-28] MEDS ORDERED: ARIPIPRAZOLE 15 MG TABLET PO SCH (08:00)
[2021-05-28] MEDS: hydrOXYzine 25 MG tablet PO SCH (09:43)
--- NOTE | 2021-05-28 12:10 | NUR ---
TC TO DUARTE, FOR TRANSPORTATION HOME. [facility]TE STATES HE WILL BE HERE SHORTLY, TO DISTANCE LEARNING COORDINATOR ASIYA FOR DC HOME.
--- NOTE | 2021-05-28 12:40 | NUR ---
TC FROM PATIENT'S MOTHER, INQUIRING PLAN OF CARE AND PATIENT'S DISCHARGE. PATIENT'S MOTHER STATES SHE HAS CUSTODY OF ASIYA'S 2 DAUGHTERS, PER COURT ORDER, AND NEEDS TO KNOW IF ASIYA IS PREPARED FOR DISCHARGE, SINCE SHE IS NOT FOLLOWING THE COURT ORDERS THAT HAVE BEEN SET UP, SO FAR.
== END 2021-05-28 13:08 | disposition home or self-care (01) ==
LOC: ER 09:12
DX: R45.86 Emotional lability (principal); F31.9 Bipolar disorder, unspecified; D64.9 Anemia, unspecified; F15.10 Other stimulant abuse, uncomplicated; F20.9 Schizophrenia, unspecified; Z88.0 Allergy status to penicillin; Z88.5 Allergy status to narcotic agent; Z79.899 Other long term (current) drug therapy; Z20.822 Contact with and (suspected) exposure to COVID-19
CPT/HCPCS: 36415; 80053; 80178; 80305; 80320; 81001; 81025; 84443; 85025; 87635; 99285; C9803; Q0177

== ENCOUNTER 2024-12-16 14:31 | Emergency (ER) | payer MEDICAID ==
[~2024-12-16] VITALS: Ht 162.6 cm; Wt 59.1 kg
[~2024-12-16 14:31] MED LIST changes: +ARIP15TA68 PO; +ATOR20TA66 PO; +HYDR50TA65 PO
[2024-12-16 14:43] VITALS: BP 111/70; PULSE 80; TEMP 98.5; O2SAT 99
--- NOTE | 2024-12-16 14:47 | ELECTROCARDIOGRAPH REPORT ---
[facility] Test Date: 2024-12-16 Test Time: 14:39:02 Pat Name: ASIYA BALES Department: EMERGENCY ROOM Room: Gender: F Wildlife Protector: AUDIE : 1995 Requested By: MAGDALENO KUO Order Number: [id number] Reading MD: Dr. Carlos Martínez Measurements Intervals [place] Rate: 70 P: 70 GA: 130 QRS: 80 QRSD: 79 T: 70 QT: 382 QTc: 413 Interpretive Statements Sinus rhythm Electronically Signed On 12-17-2024 20:42:[address] Carlos Martínez Please click the below link to view image of tracing.
[2024-12-16 15:30] VITALS: RESP 18
--- NOTE | 2024-12-16 15:49 | Physician Documentation ---
History of Present Illness ~ Chief Complaint: Chest Pain Stated Complaint: CHEST PAIN Time Seen by MD: 15:13 Primary Medical Doctor: None Mode of Arrival: POV, Ambulatory HPI 21-year-old female who presents to the emergency department at [facility] request [facility] for evaluation of acute coronary syndrome. [facility] her control implant removed from her left upper extremity. Was denied procedure today because she has a past medical history of valvular dysfunction and has a referring pain to her left chest. These symptoms have been present for a month and a half and are reproducible. There was no shortness a breath, palpitations no reported syncope or near-syncope. There has been no cough, productive sputum fevers myalgias or recent travels. Patient is cracked frustrated in fact she is crying because of the dismissive experience she had. Medication Reconciliation Allergies: Coded Allergies: No Known Allergies (Unverified , 12/16/24) Scheduled Aripiprazole (Aripiprazole), 1 TAB PO DAILY, (Reported) Atorvastatin Calcium (Atorvastatin Calcium), 1 TAB PO DAILY, (Reported) Hydroxyzine HCl (Hydroxyzine HCl), 1 TAB PO TID, (Reported) [place] Carbonate ([place] Carbonate), 2 CAP PO HS, (Reported) Quetiapine Fumarate (Quetiapine Fumarate), 1 TAB PO HS, (Reported) Past Medical History Past Medical History: Arrhythmia, Anemia, Bipolar, Schizophrenia Past Surgical History: no surgical history Patient History: Patient reports no known family medical history. Alcohol Use: None Drug Use: methamphetamine Lives with: Family Lives In: Home Occupation: student Review of Systems All Other Systems at this time: Reviewed and Negative Constitutional: Denies: diaphoresis, fever Cardiovascular: Reports: see HPI Musculoskeletal: Reports: see HPI Integumentary: Reports: see HPI Physical Exam Vital Signs: RN Vital Signs have been reviewed: Yes, Temperature: 98.5, Source: Temporal, Heart Rate: 80, Respiratory Rate: 18, BP: 111/70, Pulse Oximetry: 99, Weight: 59.090 Oxygen Flow Rate: 0 General Appearance: alert, other (Upset) EENT: normal ENT inspection Neck: normal inspection Respiratory: lungs clear, normal breath sounds Chest: no accessory muscle use Cardiovascular: normal peripheral pulses, regular rate, rhythm Gastrointestinal: guarding Extremities: other (Implant noted to the left mid humerus) Neurologic: oriented x4 Psychiatric: normal mood/affect Skin: normal color, warm/dry Progress Results/Orders Results/Orders Vital Signs 12/16/24 12/16/24 14:43 15:30 Temp 98.5 Pulse 80 Resp 18 18 B/P (MAP) 111/70 Pulse Ox 99 O2 Flow Rate 0 Medical Decision Making Additional information obtaine: PCP Findings 21-year-old female with likely referred pain from brachial plexus due to implantable left upper extremity control. Phone [facility] in his spoke with the provider who has agreed to see patient in clinic tomorrow for removal. Patient discharged for in the emergency department with scheduled follow up. No clinical suspicion for ACS. Heart Score: 0 Differential Dx:Considerations: Include: costochondritis, pericarditis, other (Referred brachial plexus pain) Departure Disposition: HOME / SELF CARE / HOMELESS Impression: Primary Impression: Tenderness of chest wall Additional Impression: Left upper extremity pain Condition: Stable Discharge Instructions: Chest Wall Pain Additional Instructions: Today in the emergency department you did an EKG which is without evidence of coronary artery disease. We have you scheduled for follow up with [facility] for [facility] of your left upper extremity control. Thank you for visiting in the emergency department [facility]. Referrals: NO PRIMARY CARE PROVIDER (PCP) Education Educated: Patient, Family Educated regarding: diagnosis, treatment, prognosis, need for follow up Signature Scribe Signature: . Attestation: . BLANCA RAMIREZ PAC Dec 16, 2024 15:49
== END 2024-12-16 15:58 | disposition home or self-care (01) ==
LOC: ER 14:32
DX: R07.9 Chest pain, unspecified (principal); M79.602 Pain in left arm; F15.90 Other stimulant use, unspecified, uncomplicated; F20.9 Schizophrenia, unspecified; D64.9 Anemia, unspecified; F31.9 Bipolar disorder, unspecified; Z79.899 Other long term (current) drug therapy
CPT/HCPCS: 93005; 99283; A6250